=== PATIENT | female | born 1980 | race African-American/Black ===

== ENCOUNTER 2024-07-17 15:27 | Emergency (ER) | payer MEDICAID ==
[2024-07-17] MEDS ORDERED: Dicyclomine 20 MG TAB ONE (16:49)
[2024-07-17] MEDS ORDERED: Ondansetron PF 4 MG/2 ML Vial ONE (16:49)
[2024-07-17] MEDS ORDERED: Pantoprazole 40 MG VIAL ONE (16:52)
[2024-07-17 16:56] LABS: #Basophils Less than 0.03 10x3/uL (0.0-0.2); #Eosinophils Less than 0.03 10x3/uL (0.0-0.7); %Basophils 0.1 % (0.0-1.0); %Monocytes 2.3 % (0.0-10.0); %Neutrophils 93.3 % (42.0-75.0); Hematocrit 40.5 % (36.0-47.0); Hemoglobin 13.6 g/dL (12.0-16.0); Mean Corpuscular HGB CONC 33.6 g/dL (32.0-36.0); Mean Corpuscular Hemoglobin 28.3 pg (27.0-31.0); Mean Corpuscular Volume 84.2 fL (78.0-98.0); Mean Platelet Volume 10.3 fL (7.4-10.4); Platelet Count 226 10x3/uL (130-400); RBC Distribution Width 14.1 % (11.5-14.5); Red Blood Cell (RBC) Count 4.81 mill/uL (4.20-5.40)
[2024-07-17 17:15] LABS: ALT (SGPT) 14 U/L (8-55); AST (SGOT) 21 U/L (5-34); Alkaline Phosphatase 51 U/L (40-110); Anion Gap 18 mmol/L (10-20); BUN (Urea Nitrogen) 11 mg/dL (7.0-18.7); Bilirubin, Total 0.8 mg/dL (0.2-1.2); Calc. Creatinine Clearance 0 mL/min (70-130); Calcium 9.8 mg/dL (7.8-10.44); Carbon Dioxide 17 mmol/L (22-29); Chloride 107 mmol/L (98-107); Estimated GFR 91; Globulin 4.2 g/dL (2.4-3.5); Glucose 159 mg/dL (70-105); Lipase 7 U/L (8-78); Magnesium 1.7 mg/dL (1.6-2.6); Protein, Total 8.2 g/dL (6.0-8.3); Sodium 138 mmol/L (136-145)
[2024-07-17 17:36] LABS: BHCG - Serum Negative (NEGATIVE); Pregs Control Background? CLEAR/WHITE (CLR/WHITE); Pregs Control Bar Appear? YES (CONTROL BAR)
[2024-07-17] MEDS ORDERED: Promethazine HCl 25 MG/ML VIAL ONE (18:06)
== END 2024-07-17 18:25 | disposition home or self-care (01) ==
LOC: ERS 15:27
DX: R11.15 Cyclical vomiting syndrome unrelated to migraine (principal)
CPT/HCPCS: 36415; 80053; 83690; 83735; 84703; 85025; 96374; 96375; J2405; J2470; J2550